=== PATIENT | male | born 1980 | race Caucasian/White ===

== ENCOUNTER 2018-12-12 16:22 | Emergency (ER) | payer OTHER ==
[2018-12-12 16:37] VITALS: BP 140/97
--- NOTE | 2018-12-12 16:38 | UC ---
Skin Complaint HPI - HPI Summary HPI Summary: 38 yo male presents with bee sting. He tells me that he has had many bee stings in the past without issue. Today around 1430 he was stung in the right arm by a yellow jacket. Since that time he has noticed hives to his b/l axilla and scattered on abdomen and chest. He has not taken any medication OTC. No facial edema, throat swelling, difficulty breathing, SOB, wheezing, cough, chest pain, n/v. - History of Current Complaint Chief Complaint: UCAllergicReaction Time Seen by Provider: 12/12/18 16:38 Stated Complaint: INSECT STING, HIVES Hx Obtained From: Patient Onset/Duration: Gradual Onset Onset Severity: Mild Current Severity: Mild Pain Intensity: 2 Pain Scale Used: 0-10 Numeric - Allergy/Home Medications Allergies/Adverse Reactions: Allergies Allergy/AdvReac Type Severity Reaction Status Date / Time No Known Allergies Allergy Verified 12/12/18 16:37 PMH/Surg Hx/FS Hx/Imm Hx - Additional Past Medical History Additional PMH: None - Surgical History Surgical History: None - Family History Known Family History: Positive: Non-Contributory - Social History Occupation: Employed Full-time Lives: With Family Alcohol Use: Occasionally Substance Use Type: None Smoking Status (MU): Never Smoked Tobacco Review of Systems All Other Systems Reviewed And Are Negative: No Constitutional: Positive: Negative Skin: Positive: Rash Eyes: Positive: Negative ENT: Positive: Negative Respiratory: Positive: Negative Cardiovascular: Positive: Negative Gastrointestinal: Positive: Negative Neurovascular: Positive: Negative Neurological: Positive: Negative Psychological: Positive: Negative Physical Exam - Summary Physical Exam Summary: GENERAL: NAD. WDWN. No distress. SKIN: Right deltoid with 4.0cm area of erythema and firmness with central bee sting. Scattered surrounding urticaria. B/L axilla with moderate amount of urticaria. Scattered urticaria on chest and abdomen. HEENT: No periorbital, lip, or other facial edema. Airway patent without oropharyngeal edema. NECK: Supple. Nontender. No lymphadenopathy. CHEST: CTAB. No wheezing. No accessory muscle use. Breathing comfortably and in no distress. CV: RRR. Pulses intact. Cap refill <2seconds NEURO: Alert. PSYCH: Age appropriate behavior. Triage Information Reviewed: Yes Vital Signs: Initial Vital Signs Temp 97.6 F 12/12/18 16:34 Pulse 88 12/12/18 16:34 Resp 16 12/12/18 16:34 BP 140/97 12/12/18 16:34 Pulse Ox 99 12/12/18 16:34 Vital Signs Reviewed: Yes Re-Evaluation - Re-Evaluation First Eval Re-Evaluation Time: 17:32 Change: Improved Comment: Pt feels much better. Urticaria dissipating. No edema or difficulty breathing Course/Dx - Course Course Of Treatment: In the clinic pt was given solumedrol, benadryl, and pepcid with resolving urticaria. Pt feels much better. Will rx for prednisone and have him take a daily benadryl. - Diagnoses Provider Diagnosis: Urticaria Discharge ED - Sign-Out/Discharge Documenting (check all that apply): Patient Departure All imaging exams completed and their final reports reviewed: No Studies - Discharge Plan Condition: Stable Disposition: HOME Prescriptions: predniSONE TAB* [Deltasone 20 MG TAB*] 20 mg PO DAILY #13 tab Patient Education Materials: Urticaria (ED) Referrals: No Primary Care Phys,NOPCP [Primary Care Provider] - Additional Instructions: If you develop a fever, shortness of breath, chest pain, new or worsening symptoms - please call your PCP or go to the ED immediately. Your blood pressure was high at todays visit. Please see your primary provider within 4 weeks for recheck and re-evaluation. - Take prednisone exactly as prescribed until gone - starting tomorrow - Okay to take Benadryl 25mg every 6 hours as needed for itching and hives. This medication may cause drowsiness - do NOT drive, operate machinery or drink alcohol while taking Benadryl -Avoid getting over-heated (hot showers, hot tubs, exercise) for at least 48 hours - Try to avoid aspirin, NSAIDs (Motrin, Aleve, Naprosyn) for 2-3 days - Okay to apply cool compresses to the area of injury - Fill your prescription for the epi pen - keep with you and use if you develop an reaction that causes difficulty breathing, facial or mouth swallowing, or any other concerns - call 911 if you use your epi pen -Contact your doctor or return here with questions or concerns - Billing Disposition and Condition Condition: STABLE Disposition: Home
[2018-12-12] MEDS ORDERED: diPHENhydraMINE PO* 25 MG PO ONE (16:43)
[2018-12-12] MEDS ORDERED: Famotidine TAB* 20 MG PO ONE (16:43)
[2018-12-12] MEDS ORDERED: methylPREDNISolone 125 MG* 2 ML VIAL IM ONE (16:43)
== END 2018-12-12 17:36 | disposition home or self-care (01) ==
LOC: UCEAST 16:22
DX: T63.441A Toxic effect of venom of bees, accidental (unintentional), initial encounter (principal); L50.9 Urticaria, unspecified; Y92.9 Unspecified place or not applicable
CPT/HCPCS: 96372; 99202; A9270-GY; G0463; J2930